=== PATIENT | male | born 1995 | race Asian ===

== ENCOUNTER 2017-06-11 14:20 | Emergency (ER) | payer OTHER | END 2017-06-11 14:37 | disposition home or self-care (01) | LOC: M ED 14:20 | DX: M54.5 Low back pain (principal); M79.604 Pain in right leg; G89.29 Other chronic pain | CPT/HCPCS: 99282 ==

== ENCOUNTER 2018-05-16 04:40 | Emergency (ER) | payer OTHER ==
[~2018-05-16] VITALS: Ht 180.3 cm; Wt 104.5 kg
[~2018-05-16 04:40] MED LIST: CYCL10TA PO; IBUP-1022 PO; LIDO5DIS41 TD
[2018-05-16] MEDS ORDERED: ISOVUE-370 76% 100ML VIAL (Q9967) As Ordered ONE (04:55)
[2018-05-16 05:13] LABS: BASO % 0.5 % (0.0-1.0); EOS # 0.1 10^3/uL (0.0-0.50); EOS % 1.3 % (0.0-3.0); HEMATOCRIT 41.6 % (42.0-52.0); LYMPH # 2.1 10^3/uL (1.5-6.5); LYMPH % 34.5 % (24.0-44.0); MEAN CORPUSCULAR HEMOGLOBIN 31.3 pg (27.0-33.0); MEAN CORPUSCULAR HGB CONC 36.1 g/dl (32.0-36.5); MEAN CORPUSCULAR VOLUME 86.8 fl (80.0-96.0); MONO # 0.4 10^3/uL (0.0-0.8); MONO % 5.9 % (0.0-5.0); NEUTROPHILS # 3.5 10^3/uL (1.8-7.7); NEUTROPHILS % 57.3 % (36.0-66.0); PLATELET COUNT, AUTOMATED 222 10^3/uL (150-450); RED BLOOD COUNT 4.79 10^6/uL (4.30-6.10); WHITE BLOOD COUNT 6.1 10^3/uL (4.0-10.0)
[2018-05-16 05:25] LABS: INR 1.08; PROTHROMBIN TIME 14.1 SECONDS (12.1-14.4)
[2018-05-16 05:26] LABS: PARTIAL THROMBOPLASTIN TIME 22.9 SECONDS (25.4-37.6)
[2018-05-16] MEDS ORDERED: MORPHINE 2 MG/ML 1ML SYRINGE (J2270) IV ONE (05:30)
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
[2018-05-16 05:45] LABS: ALBUMIN 4.2 GM/DL (3.2-5.2); ALT/SGPT 313 U/L (12-78); BILIRUBIN,DIRECT 0.2 MG/DL (0.0-0.2); BILIRUBIN,TOTAL 0.5 MG/DL (0.2-1.0); BLOOD UREA NITROGEN 11 MG/DL (7-18); CALCIUM LEVEL 8.5 MG/DL (8.5-10.1); CARBON DIOXIDE LEVEL 20 MEQ/L (21-32); CHLORIDE LEVEL 108 MEQ/L (98-107); CREATININE FOR GFR 0.89 MG/DL (0.70-1.30); ETHYL ALCOHOL (ETHANOL) 0.216 % (0.000-0.010); GLOMERULAR FILTRATION RATE > 60.0 (>60); GLUCOSE, FASTING 115 MG/DL (70-100); LIPASE 259 U/L (73-393); POTASSIUM SERUM 3.5 MEQ/L (3.5-5.1); SODIUM LEVEL 142 MEQ/L (136-145)
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
[2018-05-16 06:00] VITALS: BP 107/58
[2018-05-16] MEDS ORDERED: NS 1,000 ML IV ONE (06:00)
== END 2018-05-16 06:36 | disposition home or self-care (01) ==
LOC: M ED 04:40
DX: T14.8XXA Other injury of unspecified body region, initial encounter (principal); Y92.89 Other specified places as the place of occurrence of the external cause; F10.929 Alcohol use, unspecified with intoxication, unspecified
CPT/HCPCS: 36415; 70450; 71260; 72125; 74177; 80048; 80076; 83690; 85025; 85610; 85730; 96374; 99284; G0480; J2270; Q9967

== ENCOUNTER 2018-06-24 10:04 | Emergency (ER) | payer OTHER ==
[~2018-06-24] VITALS: Ht 182.9 cm; Wt 104.5 kg
[2018-06-24 11:37] VITALS: BP 135/76
[2018-06-24] MEDS ORDERED: FLON1SPR NARES (11:51)
[2018-06-24] MEDS ORDERED: TESS100C PO (11:51)
--- NOTE | 2018-06-25 07:03 | REP ---
PA and lateral chest: Comparison is the chest CT dated 05/16/2018. The lung norman are clear. The cardiac size is normal. The devan, mediastinum, and skeletal structures are unremarkable. Impression: Negative PA and lateral chest. There is no interval change. Electronically Signed by David Celaya MD 06/25/2018 06:54 A
== END 2018-06-24 11:57 | disposition home or self-care (01) ==
LOC: M ED 10:04
DX: J06.9 Acute upper respiratory infection, unspecified (principal); M54.9 Dorsalgia, unspecified